=== PATIENT | female | born 2000 ===

== ENCOUNTER 2025-05-01 07:05 | Outpatient (CLI) | payer BC, SELFPAY ==
--- NOTE | 2025-05-01 | DI.US_ITS ---
APPROVED REPORT EXAM: Comprehensive 2D, Doppler, and color-flow Echocardiogram Patient Location: Out-Patient Shipping Clerk: Radha Martinez RDCS (AE) Indications: Tachycardia, Dyspnea Other Information Study Quality: Good Conclusion Normal left ventricular wall thickness and chamber size. Ejection fraction is 60%. Wall motion is n ormal Normal right ventricular size and function Both atria are normal in size There is no structural or hemodynamically significant valvular disease Wall motion Left Ventricle The left ventricle is normal size. The left ventricular systolic function is normal. The left ventric ular ejection fraction is within the normal range. There is normal left ventricular wall thickness. T here is normal LV segmental wall motion. There is no ventricular septal defect visualized. LVEF is 60 %. Right Ventricle The right ventricle is normal size. The right ventricular systolic function is normal. Atria The left atrium size is normal. The right atrium size is normal. The interatrial septum is intact wit h no evidence for an atrial septal defect. Aortic Valve The aortic valve is normal in structure. Aortic valve is trileaflet. There is no aortic valvular sten osis. No aortic regurgitation is present. Mitral Valve The mitral valve is normal in structure. No evidence of mitral valve stenosis. Trace mitral regurgita tion. Tricuspid Valve The tricuspid valve is normal in structure. There is no tricuspid valve stenosis. Trace tricuspid reg urgitation. Unable to assess PA pressure. Pulmonic Valve The pulmonary valve is normal in structure. There is no pulmonic valvular stenosis. There is no pulmo keanu valvular regurgitation. Great Vessels The aortic root is normal in size. The ascending aorta is normal in size. Aortic arch is normal in ca liber. IVC is normal in size and collapses >50% with inspiration. Pericardium There is no pericardial effusion. 2D Dimensions IVSD d PLAX 0.69 cm F: 0.6-1.0 Ao Root d 2.27 cm F: 2.7 - 3.3 LVPW d PLAX 0.65 cm F: 0.6 - 1.0 Ao Asc Diam d 2.58 cm F: 2.3 - 3.1 LVID d PLAX 4.42 cm F: 3.8 - 5.2 LVDs 3.01 cm F: 2.2 - 3.5 LV EF Teichholz 60.2 % FS 31.88 % LV EDV (Teich) 88.6 mL LV ESV (Teich) 35.3 mL M-Mode TAPSE 2.18 cm (M/F) >1.7 Auto EF LV EDV A4C 94.6 mL LV EDV A2C 138.8 mL LV EDV BP 116.2 mL LV ESV A4C 40.2 mL LV ESV A2C 58.9 mL LV ESV BP 48.4 mL LVEF(%) A4C 57.5 % LVEF(%) A2C 57.6 % LVEF(%) BP 58.4 % LV SV A4C 54.4 ml LV SV A2C 79.9 ml LV SV BP 67.8 ml LV CO A4C 4.2 L/min LV CO A2C 6.5 L/min LV CO BP 5.3 L/min HR A4C 77.06 BPM HR A2C 81.08 BPM LV EDV Index (BP) LA Volume LA Length A4C 3.9 cm LA Length A2C 3.8 cm LA Area A4C s 8.92 cm2 LA Area A2C s 13.56 cm2 LA Vol A4C A-L 17.15 mL LA Vol A2C A-L 41.41 mL LA Vol Biplane A-L 27.2 mL LA Vol/BSA A4C A-L LA Vol/BSA A2C A-L LA Vol/BSA BP A-L 16.9 mL/m2 LA Vol A4C MOD 15.5 mL LA Vol A2C MOD 37.0 mL LA Vol BP MOD 24.4 mL RA Volume RA Area A4C 7.2 cm2 RA ESV A4C (A-L) 12.4mL RA Vol/BSA A4C A-L RA Length A4C 3.6 cm RA ESV A4C (MOD) 11.9mL LV Diastology MV E' medial 0.095 (>0.07 m/s) MV E Vmax 0.86 (0.4-1.3 m/s) MV E/E' MED 9.04 (<14) MV A Vmax 0.85 (0.4-1.3 m/s) MV E' lateral 0.138 (>0.1 m/s) E/A Ratio 1.0 MV E/E' LAT 6.18 (<14) MV E' Average 0.116 m/s MV E/E'(average) 7.35 Aortic Valve AoV Vmax 1.24 m/s LVOT Vmax 1.10 m/s AoV Peak Grad 6.2 mmHg LVOT Peak Grad 4.8 mmHg AoV Area (Vmax) 2.36 cm2 LVOT VTI 0.200 m AoV VTI 0.234 m LVOT Mean Grad 2.8 mmHg AoV Mean Saqib. 0.93 m/s LVOT SV 53.24 mL AoV Mean Grad 3.9 mmHg LVOT Diam s 1.80 cm AoV Area (VTI) 2.27 cm2 AV Regurg Peak Gr. 6.15 mmHg Velocity Ratio 0.89 Mitral Valve MV DT 225 (160-240 msec) MV Vmax TIPS 0.88 m/s MV Mean Grad 1.5 (<2mmHg) MV VTI 0.278 m Pulmonary Valve PV Vmax 1.03 (0.5-1.5 m/s) RVOT Vmax 0.81 m/s PV Peak Grad 4.3 mmHg RVOT Peak Gr. 2.6 mmHg PV Mean Saqib 0.81 m/s RVOT VTI 0.165 m PV Mean Grad 2.9 mmHg RVOT Mean Gr. 1.4 mmHg Tricuspid Valve TV S' 0.13 m/s
== END 2025-05-01 07:25 ==
PROVIDERS: Visit Provider Internal Medicine Cardiovascular Disease
DX: R06.00 Dyspnea, unspecified (principal); R06.09 Other forms of dyspnea
CPT/HCPCS: 93306